=== PATIENT | female | born 1945 | race Caucasian/White ===

== ENCOUNTER 2023-01-31 08:45 | Outpatient (RCR) | payer OTHER, MEDICARE, SELFPAY ==
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
--- NOTE | 2022-12-16 16:20 | PTOPPROG ---
Assessment and note entered by Theresa Caba, PT Assessment Status Progress Onset 10/23/22 Subjective Information Pt reports feeling 60% improved overall. States everything is getting more normal . 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 Feels turning left is improved but still catches sometimes, has to reset herself and then is able to turn further. Assessment PT Clinical Summary Pt reports feeling 60% improved overall since starting therapy. Cont to show deficits in ROM, significant postural abnormalities, muscle tonicity issues, and postural patterning deficits. Pt does report improvements in pain and function with less pain as well during reevaluation. Cervical traction was initiated today with pt stating she felt relaxed during activity. Pt has yet to return to her prior painfree level of function thus therapy is necessary to continue at this time. Plan of Care Interventions Electrical Stimulation,Hot Pack/Cold Pack,Manual Therapy,Neuro Re-education,Patient/Caregiver Educati,Therapeutic Activities,Therapeutic Exercise,Self-Care/Home Management PT Services Indicated Yes Treatment Frequency and Cont POC 2x weekly x 4 weeks Duration These treatments will address the objective and functional deficits as defined above. The patient will be advanced safely and appropriately in order for the patient to progress towards his/her prior level of function. Additional exercises will be introduced and as well as a comprehensive home exercise program upon discharge, if needed, ?to ensure carryover of functional gains achieved in the clinic. This treatment plan has been reviewed and agreement upon by the patient.
--- NOTE | 2023-01-06 15:59 | PTOPPROG ---
Assessment and note entered by Theresa Caba, PT Evaluation Information Assessment Status Progress Report Onset 10/23/22 Subjective Information Pt reports feeling improved overall. States neck catches less often with looking left . Notes her feeling of head being heavy and getting out of bed is also improved. Assessment PT Clinical Summary Pt is making overall progress in her ROM and discomfort. Cont to have difficulty with her posture causing increased muscle tension and tone as well as discomfort. Cont to demo significant kyphosis and forward head which she has been trying to improve. Pt will benefit from cont therapy at a reduced frequency to assess response to normal activity with less intervention in order to return to prior level of function. Plan of Care Interventions Electrical Stimulation,Hot Pack/Cold Pack,Manual Therapy,Mechanical Traction,Neuro Re-education, Therapeutic Activities,Therapeutic Exercise, Ultrasound PT Services Indicated Yes Treatment Frequency and 1x weekly x 4 weeks Duration These treatments will address the objective and functional deficits as defined above. The patient will be advanced safely and appropriately in order for the patient to progress towards his/her prior level of function. Additional exercises will be introduced and as well as a comprehensive home exercise program upon discharge, if needed, ?to ensure carryover of functional gains achieved in the clinic. This treatment plan has been reviewed and agreement upon by the patient.
--- NOTE | 2023-01-31 13:14 | PTOPDC ---
Assessment and note entered by Theresa Caba, PT Assessment Status Discharge Onset 10/23/22 Subjective Information Pt reports feeling in the 80's percent improvement. Had a little flare up on the left side last week after her home exercises. Pt reports this has resolved but thinks is as good as it's going to be . Cont to be unable to lift two of her 2 gallon watering cans (one in each hand) and can do this, but is harder that it used to be. Reported Pain Level Pain Score 1: Self Report Assessment PT Clinical Summary Pt reports feeling her improvement overall in the 80's percent. States she feels she has met her maximal benefit. Her pain ranges from 1-4/10 with less catching and tension. She is able to perform high level activities such as gardening without increased pain but notes it is more challenging that it used to be, Pt cont to demo significant kyphosis and forward head that was possibly her prior level postures. Pt is happy with her progress and has met max benefit for therapy at this time. PT has been educated in seeking treatment in the future if necessary, as well as her home program has been updated, thus pt is being discharged for max benefit being met.
== END 2023-01-31 14:45 | disposition home or self-care (01) ==
LOC: ANHHIPT 08:45
PROVIDERS: PCP Physician Assistant Medical; Visit Provider Physician Assistant Medical
DX: M54.6 Pain in thoracic spine (principal); M54.2 Cervicalgia; V49.50XD Passenger injured in collision with unspecified motor vehicles in traffic accident, subsequent encounter
CPT/HCPCS: 97012; 97014; 97110; 97112; 97140; 97161; G0283

== ENCOUNTER 2024-12-06 02:20 | Day surgery (SDC) | payer MEDICARE, SELFPAY ==
[2024-11-05 11:26] VITALS: BMI 19.8
--- OUTSIDE RECORDS SUMMARY | 2024-11-14 00:33 | XMS_ITS | Data Portability ---
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 Negative cardiac history negative cardiac review of systems physically active with no exertional issues no previous history of heart murmur EKG sinus bradycardia 48 per minute with nonspecific ST abnormality in septal T in version - abnormal heart sounds on cardiac exam, prominent S2, no swelling, mildly abnormal EKG with nonspecific ST-T will start with an echocardiogram, - Sinus bradycardia, on nebivolol Plan, echocardiogram further recommendations to follow [email or web address] [id number] Not available 09/22/2023 16:57:32 10/07/2023 10/07/2023 78-year-old female, noted to have an abnormal cardiac exam by PCP up in [place], an echocardiogram was recommended. Negative cardiac history negative cardiac review of systems physically active with no exertional issues no previous history of heart murmur EKG sinus bradycardia 48 per minute with nonspecific ST abnormality in septal T in version - abnormal heart sounds on cardiac exam, prominent S2, no swelling, mildly abnormal EKG with nonspecific ST-T pulmonary hypertension identified on echocardiogram, RVSP 46. only mild TR. Left heart looks normal. Will start with a PFT and V/Q lung scan reviewed with patient in detail - Sinus bradycardia, on nebivolol Plan, PFT V/Q , ventilation-perfus ion lung scan further recommendations to follow [email or web address] Not available 10/07/2023 14:32:26 Plan of Treatment Reminders Order Date Submit Date Provider Last Modified By Organization Details Last Modified Time Details Appointments None recorded. Lab None recorded. Referral None recorded. Procedures None recorded. Surgeries None recorded. Imaging NM, lung scan, ventilation /perfusion 2023 024 [facility] (Imaging), [address], [place], [address], 16:22:21 XR, chest, 2 view 2023 [facility] (Lab/Imaging) , [address], [place], [address], 14:15:07 electrocard iogram 2023 [email or web address] In-House Test, For Internal Use Only, Do Not Delete/merge, [id number] 16:50:19 US, echocardiog suki, transthorac ic, complete, w/ color flow - CPT [address] [facility], [address], [place], [address], 4 13:15:09 Medication Orders None recorded. Patient TargetsNo targets recorded. Patient Instructions Encounter Date Encounter Id Patient Instructions Last Modified By Organization Details Last Modified Time 10/07/2023 [id number] complete PFT* - CPT 29900, [address], [id number] [email or web address] Not available 10/19/2023 15:11:30 Reason for Referral None Reported. Results Created Date Observation Date Name Description Value Unit Range Abnormal Flag Note LastModifiedBy Organization Detail LastModifiedTime 09/22/19 24 09/22/2023 anil reinoso am No observ ation record ed. [email or web address] In-House Test For Internal Use Only, Do Not Delete/merge, [id number] 09/22/2023 16:50:18 09/22/19 anil rocar zandragr am No observ ation record ed. [email or web address] Not Available 03/2024 12:50:13 09/27/19 24 09/19/2017 elect keegan diogr am No observ ation record ed. [email or web address] Not Available 11:49:57 09/27/19 24 09/19/2017 elect rocar diogr am No observ ation record ed. [email or web address] Not Available 2023 16:41:32 09/28/19 24 09/29/2017 elect jenniferar diogr am No observ ation record ed. [email or web address] Not Available 2023 11:47:03 09/28/19 24 10/30/2022 US, duple x, carot id arter y No observ ation record ed. [email or web address] Not Available 2023 11:47:11 09/29/19 24 09/29/2023 US, echoc ardio gram, trans thora cic, compl ete, w/ color flow No observ ation record ed. ideaas [facility] [address], [place], [address], 11/02/2023 16:42:59 10/19/19 24 10/19/2023 XR, chest , 2 view No observ ation record ed. [email or web address] [facility] (Imaging) [address], [place], [address], 10/19/2023 20:42:41 10/19/19 24 10/19/2023 compl ete PFT* No observ ation record ed. [email or web address] Not Available 02/2024 08:23:07 10/19/19 24 10/19/2023 NM, lung scan, venti latio n/per fusio n No observ ation record ed. [email or web address] [facility] (Imaging) [address], [place], [address], 10/20/2023 08:20:30 Result Notes None recorded. Procedures Surgical History None recorded. Imaging Results Imaging Date Name Status LastModified by Organization Details LastModified Time 09/22/2023 electrocardiogram completed [email or web address] [id number] In-Hous e Test For Internal Use Only, Do Not Delete/merge, [id number] 09/22/2023 16:50:18 09/22/2023 electrocardiogram completed Infor mation not available 09/22/2023 12:50:13 09/29/2017 electrocardiogram completed Informa tion not available 09/29/2023 11:47:03 10/30/2022 US, duplex, carotid artery [email or web address] not available 09/29/2023 11:47:11 09/29/2023 US, echocardiogram, transthoracic, complete, w/ color flow completed [facility] [address], [place], [address], 11/02/2023 16:42:59 09/19/2017 electrocardiogram completed Infor mation not available 10/03/2023 11:49:57 10/19/2023 XR, chest, 2 view completed [address] [facility] (Imaging) [address], [place], [address], 10/19/2023 20:42:41 10/19/2023 complete PFT* completed [email or web address] Informati on not available 10/20/2023 08:23:07 10/19/2023 NM, lung scan, ventilation/perfusio n completed [address] (Imaging) [address], [place], [address], 10/20/2023 08:20:30 09/19/2017 electrocardiogram completed Informa tion not available 11/02/2023 16:41:32 Procedure Notes None recorded. Medical Equipment None Reported. Allergies No known drug allergies Medications Name Sig Start Date Stop Date Status Note LastModified by Organization Details LastModified Time prednisone 10 mg tablet TAKE 3 TABLET BY MOUTH ONCE DAILY FOR 3 DAYS, THEN 2 TABLET ONCE DAILY FOR 3 DAYS, THEN 1 TABLET ONCE DAILY FOR 3 DAYS 09/22 completed Not Available Not Available Not Available levothyroxi ne 50 mcg tablet TAKE 1 TABLET BY MOUTH ONCE DAILY active Not Available Not Available No t Available mupirocin 2 % topical ointment APPLY OINTMENT TOPICALLY TO NOSE TWICE DAILY 09/22 completed Not Available Not Available Not Available estradiol 0.5 mg tablet TAKE 1/2 (ONE-HALF ) TABLET BY MOUTH ONCE DAILY active Not Available Not Available No t Available clorazepate dipotassium 7.5 mg tablet TAKE 1 TABLET BY MOUTH TWICE A DAY NEEDED FOR ANXIETY active Not Available Not Available No t Available nebivolol 10 mg tablet Take 1 tablet every day by oral route. active Not Available Not Available No t Available sodium,pota ssium,mag sulfates 17.5 gram-3.13 gram-1.6 gram oral soln MIX AND DRINK DIRECTED 09/22 completed Not Available Not Available Not Available Paxlovid 150 mg-100 mg tablets in a dose pack (Renal Dose) TAKE 2 TABLETS BY MOUTH TWICE A DAY FOR 5 DAYS FOLLOWING PACKAGE INSTRUCTI ONS 09/22 completed Not Available Not Available Not Available Vitals Date Recorded Body height Body mass index (BMI) Body weight Heart rate Oxygen saturation Oxygen saturation in Arterial blood by Pulse oximetry Systolic blood pressure Diastolic blood pressure Provider Name and Address Organization Details Last Updated DateTime 4 154.94 cm 20.2 kg/m2 04757.3 8 g 50 /min 99 % 99 % 128 mm[Hg] 86 mm[Hg] [facility] - [facility] 4 12:43:19 Date Recorded Body height Body mass index (BMI) Body weight Heart rate Oxygen saturation Oxygen saturation in Arterial blood by Pulse oximetry Systolic blood pressure Diastolic blood pressure Provider Name and Address Organization Details Last Updated DateTime 4 154.94 cm 20.8 kg/m2 49178.1 6 g 61 /min 97 % 97 % 136 mm[Hg] 82 mm[Hg] [facility] - [facility] 4 13:53:39 Social History Question Answer Notes LastModified by Organizat ion Details LastModified Time Tobacco Smoking Status Former Smoker [place], [place] - [facility] 09/22/2023 12:22:02 What Is Your Level Of Alcohol Consumption? Occasional [email or web address] Information not available 09/22/2023 What Is Your Level Of Caffeine Consumption? Moderate [email or web address] Information not available 09/22/2023 What Type Of Diet Are You Following? REGULAR [email or web address] Information not available 09/22/2023 When Did You Quit Smoking? 16+yearsjasmina mcdaniel [email or web address] Information not available 09/22/2023 At What Age Did You Start Smoking Tobacco? 16 [email or web address] Information not available 09/22/2023 Do You Or Have You Ever Used Any Other Forms Of Tobacco Or Nicotine? No [email or web address] Information not available 09/22/2023 Sex: Unknown Functional Status None recorded. Mental Status None recorded. Family History Relationship Description Onset Age of this Age Resolved Age Notes LastModified by Organization Details LastModified Time Mother Cerebrovascu lar accident [email or web address] Not available 03/2024 12:22:01 Mother Hypertensive disorder [email or web address] Not available 2023 12:22:01 Maternal Grandfather Cerebrovascu lar accident [email or web address] Not available 03/2024 12:22:01 Notes:Father, PPM Medical History Condition Response Anxiety Disorder Y Hypertension Y Gynecological HistoryNo gynecological history recorded. Obstetrics History GPAL:G 0 P 0 0 0 0 Past Encounters Encounter ID Performer Location Encounter Start Date Encounter Closed Date Diagnosis/Indication Diagnosis SNOMED-CT Code Diagnosis ICD10 Code Diagnosis Note [id number] JEANETTE KELLER MD [facility] [address] [place] [address] 09/22/2023 12:04:12 09/22/2023 13:55:58 Essential hypertension 79240381 I10 Electrocar diogram abnormal 879049080 R94.[address]-T abnormalit y. [id number] JEANETTE KELLER MD [facility] [address] [place] [address] 10/07/2023 13:46:15 10/07/2023 14:19:44 Essential hypertension 36139567 I10 Electrocar diogram abnormal 138175932 R94.[address]-T abnormalit y. Pulmonary hypertension 32966955 I27.0 Health Concerns Section Related Observation LastModified by Organization Detai ls LastModified Time None Recorded Concern Status LastModified by Organization Details LastModified Time None Recorded Advance Directives Directive None Recorded Payers Encounter Date Sequence Insurance Name Policy Number Policy Hardy Covered Member ID Hardy Member ID Guarantor Name 09/22/2023 1 [employer] (MEDICARE REPLACEMENT PPO) [id number] L Dilia Lopezy [id number] Dilia Hinton 10/07/2023 1 [employer] (MEDICARE REPLACEMENT PPO) [id number] L Dilia Lopezy [id number] Dilia Frey Notes Date Note Type Note Provider Name and Address Organization Details Recorded Time 4 text/html 78-year-old female, noted to have an abnormal cardiac exam by PCP up in [place], an echocardiogram was recommended.Negative cardiac historynegative cardiac review of systemsphysically active with no exertional issuesno previous history of heart murmur EKG sinus bradycardia 48 per minute with nonspecific ST abnormality in septal T in version negative diabetespositive hypertensionnegative cholesterolnegative cigarettenegative family history JEANETTE KELLER MD [address], [place], [address], [facility] - [facility] 09/22/2023 16:58:45 4 text/html 78-year-old female, noted to have an abnormal cardiac exam by PCP up in [place], an echocardiogram was recommended.Negative cardiac historynegative cardiac review of systemsphysically active with no exertional issuesno previous history of heart murmur EKG sinus bradycardia 48 per minute with nonspecific ST abnormality in septal T in version negative diabetespositive hypertensionnegative cholesterolnegative cigarettenegative family history 10/07/23Status post echocardiogram,left heart looks normalRV normalRVSP elevated at 36 mmHgsmoked from age 17-40states he has had a negative workup in the past for lupusno history of thromboembolic disease, no previous diagnosis of COPD or emphysemaHysterectomy back in 2003cholesterol 171CMP normalTFT normal, treatedreturns to [place] in late [place] JEANETTE KELLER MD [address], [place], [address], [facility] - [facility] 10/07/2023 14:32:51 OBGyn Episode No OBEpisode recorded.
--- OUTSIDE RECORDS SUMMARY | 2024-11-14 00:33 | XMS_ITS | Clinical Summary ---
Author Organization [facility] Address [address] [place] [address] Care Team Providers Care Physician Primary Care Sports Medicine Name Role Phone Mihaela Villagran Primary Care Provider [phone] Allergies Active Allergy Reactions Criticality Noted Date Comments Amlodipine Rash Medium 12/06/2023 Amoxicillin-Pot Clavulanate Diarrhea Low 12/06/19 24 Ciprofloxacin Unknown 12/06/2023 Doxycycline Unknown 12/06/2023 Hydrochlorothiazide Unknown 12/06/2023 Ibandronate Muscle pain Medium 12/06/2023 Montelukast Rash Medium 12/06/2023 Nitrofurantoin Monohyd/M-Cryst Unknown 12/05 Medications calcium carbonate-vitam in D3 600mg (1,500mg) -1,000 unit capsule Take by mouth Ca 600 mg & Vit d 2000 iu every other day Active levothyroxine (SYNTHROID) 50 mcg tablet Take 1 tablet (50 mcg total) by mouth bench manager before breakfast Active estradioL (ESTRACE) 0.5 mg tablet Take 1 tablet (0.5 mg total) by mouth daily Active nebivoloL (BYSTOLIC) 5 mg tablet Take 1 tablet (5 mg total) by mouth daily Active clorazepate (TRANXENE) 7.5 mg tablet Take 1 tablet (7.5 mg total) by mouth 2 (two) times a day As needed 3 Active Active Problems Problem Noted Date Diagnosed Date Family history of colon cancer 03/24/2022 Overview (03/24/2022): Added automatically from request for surgery [id number] High risk for colon cancer 10/14/2021 Overview (10/14/2021): Added automatically from request for surgery [id number] Plantar fasciitis, bilateral 01/14/2020 Malignant neoplasm screen 11/21/2018 Overview (11/21/2018): Added automatically from request for surgery [id number] Encounter for screening colonoscopy 05/31/2018 Overview (05/31/2018): Added automatically from request for surgery [id number] Bleeding internal hemorrhoids 02/08/2014 Skin neoplasm 04/27/2013 Eczema 04/27/2013 Venous stasis dermatitis 04/27/2013 Inflamed seborrheic keratosis 04/27/2013 Osteopenia 12/12/2010 Overview (11/12/2019): HRT, ca 500/d, D 2000 IU twice weekly Hx: PO bisphosphonates with pain Surgical History Surgery Date Site/Laterality Comments TOTAL ABDOMINAL HYSTERECTOMY W/ BILATERAL SALPINGOOPHORECTOMY age 58 AUGMENTATION MAMMOPLASTY Medical History Medical History Date Comments History of colon polyps Hypothyroidism HTN (hypertension) Osteoporosis Arthritis Family History Medical History Relation Name Comments Cancer Brother Family history of malignant neoplasm - (Added by TW Conv) Osteoporosis Other aunt Relation Name Status Comments Brother Other aunt Alive Social History Tobacco Use Types Packs/Day Years Used Date Smoking Tobacco: Former Cigarettes Q uit: 1985 Smokeless Tobacco: Former Alcohol Use Standard Drinks/Week Comments Yes 0 (1 standard drink = 0.6 oz pur e alcohol) AUDIT-C Answer Date Recorded Q1: How often do you have a drink containing alcohol? Never 11/25/2022 Q2: How many drinks containi ng alcohol do you have on a typical day when you are drinking? Patient does not drink Q3: How often do you have si x or more drinks on one occasion? Never 11/25/2022 Personal Safety Answer Date Recorded Have you ever been in or are you currently in a harmful physical or emotional relationship or is someone making you feel afraid or unsafe? 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 Gender Identity Female 06/28/2018 10:33 AM SALESPERSON HANDBAGS Sexual Orientation Not on file Obstetrics History Last Filed Vital Signs Vital Sign Reading Time Taken Comments Blood Pressure 158/85 11/25/2022 10:31 AM CDT Pulse 60 11/25/2022 10:36 AM CDT Temperature 36.2 C (97.2 F) 11/25/2022 9:30 AM CDT Respiratory Rate 12 11/25/2022 10:36 AM CDT Oxygen Saturation 98% 11/25/2022 10:36 AM CDT Inhaled Oxygen Concentration - - Weight 49.9 kg (110 lb) 02/21/2024 1:21 PM CDT Height 153.7 cm (5' 0.5 ) 02/21/2024 1:21 PM CDT Body Mass Index 21.13 02/21/2024 1:21 PM CDT Plan of Treatment Health Maintenance Due Date Last Done Comments Depression Screening 1945 Fall Risk Assessment 1945 Hepatitis C Screening 1945 DTaP/Tdap/Td Vaccine (1 - Tdap) 1956 Hepatitis B Screening 1963 Pneumococcal vaccine 65+ (1 of 1 - PCV) 1995 Well Visit 65+ 2010 Influenza Vaccine (Season Ended) 2025 06/04/20 19 Osteoporosis Screening-Bone Density Scan 02/20/2026 02/21/2024, 09/21/2022, 09/21/2022, Additional history exists Zoster Vaccine Completed 05/12/2018, 12/22/2017 Colon Cancer Screening-CT Colonography Discontinued 11/25/2022, 06/15/2019, 04/16/2016, Additional history exists Colon Cancer Screening-Colonoscopy Discontinued 11/25/2022, 06/15/2019, 04/16/2016, Additional history exists Colon Cancer Screening-DNA Stool Discontinued 11/25/2022, 06/15/2019, 04/16/2016, Additional history exists Colon Cancer Screening-FIT Discontinued 11/25, 06/15/2019, 04/16/2016, Additional history exists Colon Cancer Screening-FOBT Discontinued 11/13, 06/15/2019, 04/16/2016, Additional history exists Colon Cancer Screening-Sigmoidoscopy Discontinued 11/25/2022, 06/15/2019, 04/16/2016, Additional history exists Colorectal Cancer Screening Discontinued Procedures Procedure Name Priority Date/Time Associated Diagnosis Comments DEXA TBS AXIAL SKELETON BONE DENSITY 1 OR MORE SITES Schedule Routine, Read Routine (OP Routine) 02/21/2024 1:15 PM CDT Osteopenia of left hip COLONOSCOPY 11/25/2022 9:31 AM CDT from Last 3 Months or Most Recently Relevant to Health Maintenance Results * Dexa TBS Axial Skeleton Bone Density 1 or more sites (02/21/2024 1:15 PM CDT) Anatomical Region Laterality Modality Wrist, Body N/A Radiographic Regina ging Narrative 02/21/2024 3:45 PM CDT Patient Name: Dilia Hinton Date of : 1945 Date of scan: 02/21/2024 Bone mineral density was performed on a [employer] Discovery Densitometer. Based on machine cross-calibration and precision studies the least significant changes of this densitometer is 0.024 g/cm2 at the spine, 0.020 g/cm2 at the total proximal femur, and 0.014g/cm2 at the forearm. HISTORY: This is a 78 y.o. postmenopausal female with a history of low bone mass and thyroid disease. She reports that she quit smoking about 38 years ago. She has quit using smokeless tobacco. Currently on treatment with calcium, vitamin D, hormone replacement therapy, and thyroid hormone, previously treated with risedronate (Actonel), risedronate (Atelvia), and ibandronate (Boniva), and current complaint of leg pain. INDICATIONS: Menopause status, treatment monitoring, and history of low bone mass. FINDINGS: BONE MINERAL DENSITY OF THE LUMBAR SPINE Bone Mineral Density (BMD) of the lumbar spine was measured from L1-L4 and the average density was calculated to be 1.071 gm/cm2. This corresponds to a T-score (standard deviations from the mean of young adults) of 0.2. When compared to the previous study of 09/21/2022 there has been no significant changes in bone density. BONE MINERAL DENSITY OF THE PROXIMAL FEMUR Bone Mineral Density (BMD) of the left hip total was found to be 0.795 gm/cm2. This corresponds to a T-score standard deviations from the mean of young adults of -1.2. Femoral neck is 0.676 gm/cm2 with a T-score (standard deviations from the mean of young adults) of -1.6. When compared to the previous study of 09/21/2022 there has been no significant changes in bone density. SUMMARY: Bone mineral density shows evidence of low bone mass at the proximal femur and moderately increased fracture risk (Osteopenia). There has been no significant changes in bone density since previous measurement. The lumbar spine Trabecular Bone Score is 1.361 which suggests normal bone microarchitecture, compared to the general population. Final decisions regarding diagnostic or therapeutic recommendations should include BMD, TBS, additional clinical risk factors as well the clinical context of the patient. Please see attached TBS results for further details. ADDITIONAL COMMENTS: Postmenopausal Women and Men Over 50: Diagnostic criteria: Osteoporosis: BMD at or below -2.5 T-score; Osteopenia (low bone mass): BMD between -1.0 and -2.5 T-score. If the patient has a history of a fragility fracture, a fracture that occurred with trauma equivalent to a fall from a standing position or less, then the diagnosis is osteoporosis regardless of bone density. The history and data sections of the bone mineral density scan were prepared by Sharla Tello(Adrián) [employer] who is accredited by the International Society of Clinical Densitometry. The overall patient assessment and scan interpretation were performed by Trang Roth MD who is certified by the International Society of Clinical Densitometry. [id number] us Trang Roth MD IMG DXA PROCEDURES Final Re sult * COLONOSCOPY (11/25/2022 9:31 AM CDT) Anatomical Region Laterality Modality Other Narrative Procedure Note Maxime Dobbins MD - 11/25/2022 9:31 AM CDT [facility] Patient Name: Dilia Hinton Procedure Date: 11/25/2022 9:31 AM Date of : 1945 Admit Type: Outpatient Age: 77 Gender: Female Attending MD: Maxime Dobbins M.D. Room: [facility] ENDOSCOPY ROOM 02 Note Status: Finalized Procedure: Colonoscopy Indications: High risk colon cancer surveillance: Personalhistory of colonic polyps, Last colonoscopy: 2018 Referring MD: Providers: Maxime Dobbins M.D. Medicines: Propofol per Anesthesia Complications: No immediate complications. Estimated blood loss:None. Estimated Blood Loss: Estimated blood loss: none. Procedure: Pre-Anesthesia Assessment: - Immediately prior to administration ofmedications, the patient was re-assessed for adequacy to receive sedatives. - Sedation was administered by an anesthesia professional. General anesthesia was attained. - The heart rate, respiratory rate, oxygen saturations, blood pressure, adequacy of pulmonary ventilation, and response to care were monitored throughout the procedure. - The physical status of the patient wasre-assessed after the procedure. The benefits, risks and alternatives of theprocedure and sedation were discussed and informed consentwas obtained. All questions were answered. Please referto the signed informed consent document in the medical record. The scope was passed under direct vision.The [id number] was introduced through the anusand advanced to the the cecum, identified byappendiceal orifice and ileocecal valve. The colonoscopy was performed with ease. The patient tolerated the procedure well. The quality of the bowelpreparation was excellent. The quality of the bowel preparation was evaluated using the BBPS ([place] BowelPreparation Scale) with scores of: Right Colon = 3, Transverse Colon = 3 and Left Colon = 3 (entire mucosa seenwell with no residual staining, small fragments of stoolor opaque liquid). The total BBPS score equals 9. The bowel preparation used was SUPREP via split dose instruction. Findings: The entire examined colon appeared normal. Impression: - The entire examined colon is normal. - No specimens collected. Recommendation: - Repeat colonoscopy in 3 years for surveillance. Electronically signed by Dr.Matthew Shilpi M.D. Maxime Dobbins M.D. 11/25/2022 10:11:49 AM . Number of Addenda: 0 Note Initiated On: 11/25/2022 9:31 AM Recognized by the [place] [employer]intestinal [employer] for promoting quality in endoscopy Maxime Dobbins MD ENDOSCOPY PROCEDURES Final R esult from Last 3 Months or Most Recently Relevant to Health Maintenance Insurance [facility] TNA MEDICARE AETNA MEDICARE [facility] Advance Directives For more information, please contact: [phone] * Full Code (Latest Code Status on File) Date Activated Date Inactivated Comments 11/25/2022 8:59 AM 11/25/2022 2:55 PM * Full Code Date Activated Date Inactivated Comments 06/15/2019 8:24 AM 06/15/2019 1:38 PM Care Teams Physician Primary Care Sports Medicine Relationship Specialty Start Date End Date Mihaela Villagran PA [address] [place] [address] PCP - General Family Practice 09/21/22
--- OUTSIDE RECORDS SUMMARY | 2024-11-14 00:33 | XMS_ITS | Referral Summary ---
Author Organization [facility] Address [address] [place] [address] Care Team Providers Care Narcotics Investigator Name Role Phone Mihaela Villagran Primary Care Provider [phone] Allergies Active Allergy Reactions Criticality Noted Date [...] 1 tablet (50 mcg total) by mouth nonprofit financial controller before breakfast Active estradioL (ESTRACE) 0.5 mg [...] (03/24/2022): Added automatically from request for surgery [id number] High risk for colon cancer 10/14/2021 Overview (10/14/2021): Added automatically from request for surgery [id number] Plantar fasciitis, bilateral 01/14/2020 Malignant neoplasm screen 11/21/2018 Overview (11/21/2018): Added automatically from request for surgery [id number] Encounter for screening colonoscopy 05/31/2018 Overview (05/31/2018): Added automatically from request for surgery [id number] Bleeding internal hemorrhoids 02/08/2014 Skin neoplasm 04/27/2013 Eczema 04/27/2013 Venous stasis dermatitis 04/27/2013 Inflamed seborrheic keratosis 04/27/2013 Osteopenia 12/12/2010 Overview (11/12/2019): HRT, ca 500/d, D 2000 IU twice weekly Hx: PO bisphosphonates with pain Social History Tobacco Use Types Packs/Day Years [...] on file Legal Sex Female 8:22 PM 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 Based on machine cross-calibration and [...] mineral density scan were prepared by Sharla Ayon) DAVID who is accredited by the International Society of Clinical Densitometry. The overall patient assessment and scan interpretation were performed by Trang Roth MD who is certified by the International Society of Clinical Densitometry. [id number] us Trang Roth MD IMG DXA PROCEDURES Final Re sult * COLONOSCOPY (11/25/2022 9:31 AM CDT) Anatomical Region Laterality Modality Other Narrative Procedure Note Maxime Dobbins MD - 11/25/2022 9:31 AM CDT [facility] Patient Name: Dilia Hinton Procedure Date: 11/25/2022 9:31 AM Date of : 1945 Admit Type: Outpatient Age: 77 Gender: Female Attending MD: Maxime Dobbins M.D. Room: [facility] ENDOSCOPY ROOM 02 Note Status: Finalized Procedure: [...] The scope was passed under direct vision.The [id number] was introduced through the anusand advanced to the the cecum, identified byappendiceal orifice and ileocecal valve. The colonoscopy was performed with ease. The patient tolerated the procedure well. The quality of the bowelpreparation was excellent. The quality of the bowel preparation was evaluated using the BBPS ([place] BowelPreparation Scale) with scores of: Right Colon [...] On: 11/25/2022 9:31 AM Recognized by the [place] [employer] Gastrointestinal Endoscopy for promoting quality in endoscopy Maxime Dobbins MD ENDOSCOPY PROCEDURES Final R esult from Last 3 Months or Most Recently Relevant to Health Maintenance [facility] A[facility] MEDIC[facility] AETNA MEDICARE [facility] Advance Directives For more information, please contact: [phone] * Full Code (Latest Code Status on File) Date Activated Date Inactivated Comments 11/25/2022 8:59 AM 11/25/2022 2:55 PM * Full Code Date Activated Date Inactivated Comments 06/15/2019 8:24 AM 06/15/2019 1:38 PM Care Teams Narcotics Investigator Relationship Specialty Start Date End Date Mihaela Villagran PA [address] [place] [id number] PCP - General Family Practice 09/21/22
--- OUTSIDE RECORDS SUMMARY | 2024-11-14 00:34 | XMS_ITS | Clinical Summary ---
Author Organization [facility] Address [address] [place] [address] Phone Care Team Providers Care Sales Planning Coordinator Name Role Phone Unavailable Primary Care Provider Unavailabl e Allergies Active Allergy Reactions Criticality Noted Date Comments Amlodipine Rash Low 12/06/2023 Amoxicillin-Pot Clavulanate Diarrhea Low 12/06/19 24 Ciprofloxacin Unknown 12/06/2023 Doxycycline Unknown 12/06/2023 Hydrochlorothiazide Unknown 12/06/2023 Ibandronate Muscle Pain Low 12/06/2023 Montelukast Rash Low 12/06/2023 Nitrofurantoin Monohyd/M-Cryst Unknown 12/05 Medications estradioL (ESTRACE) 0.5 mg tablet Take 0.25 mg by mouth daily. Active levothyroxine 50 mcg tablet Take 50 mcg by mouth daily. Active nebivoloL (BYSTOLIC) 20 mg Tablet Take 20 mg by mouth daily. Active Active Problems Problem Noted Date Diagnosed Date Pulmonary hypertension 12/06/2023 Encounters Date Type Department Care Team Description 10/03/2024 External Device Data [facility] ABSTRACTION Provider, Abstract 09/12/2024 External Device Data [facility] ABSTRACTION Provider, Abstract 09/06/2024 External Device Data [facility] ABSTRACTION Provider, Abstract from Last 3 Months Family History Medical History Relation Name Comments Pacemaker Father Aleksandr Potthast Hypertension Mother [place] Potthast High and ve ry fluctuating Stroke Mother Meryl Potthast Relation Name Status Comments Father Aleksandr Potthast Mother [place] Potthast Social History Tobacco Use Types Packs/Day Years Used Date Smoking Tobacco: Former Cigarettes 0.5 20 1 983 - 11/10/1983 Tobacco Cessation:Counseling Given: Not Answered Alcohol Use Standard Drinks/Week Comments Yes 12 (1 standard drink = 0.6 oz pu re alcohol) Food Insecurity Answer Date Recorded Social/Environmental Concerns No concerns Transportation Needs Answer Date Record ed Social/Environmental Concerns No concerns Housing Stability Answer Date Recorded Social/Environmental Concerns No concerns Utility Needs Answer Date Recorded Social/Environmental Concerns No concerns Comments Unknown Sex and Gender Information Value Date Recorded Sex Assigned at Not on file Legal Sex Female 2:32 PM CDT Gender Identity Not on file Sexual Orientation Not on file Last Filed Vital Signs Vital Sign Reading Time Taken Comments Blood Pressure 129/80 12/16/2023 3:15 PM CDT Pulse 72 12/16/2023 2:45 PM CDT Temperature 37.2 C (98.9 F) 12/16/2023 12:39 PM CDT Respiratory Rate 13 12/16/2023 3:15 PM CDT Oxygen Saturation 99% 12/16/2023 2:45 PM CDT Inhaled Oxygen Concentration - - Weight 48.5 kg (107 lb) 12/16/2023 12:39 PM CDT Height 154.9 cm (5' 1 ) 12/16/2023 12:39 PM CDT Body Mass Index 20.22 12/16/2023 12:39 PM CDT Plan of Treatment Health Maintenance Due Date Last Done Comments DTAP/TDAP/TD VACCINES (1 - Tdap) 1964 PNEUMOCOCCAL VACCINE 50+ YEA RS (1 of 1 - PCV) 1995 ZOSTER VACCINE (1 of 2) 1995 RSV VACCINE (60+ or ) (1 - 1-dose 75+ series) 2020 INFLUENZA VACCINE (#1) 2024 OSTEOPOROSIS SCREENING Completed , 09/21/2022, 06/01/2021, Additional history exists COLORECTAL SCREENING Discontinued 11/25/2022, 11/25/2022, 06/15/2019 Colorectal Cancer Screening Discontinued FIT-DNA Q 3 years Discontinued FIT/FOBT Q 1 year Discontinued Flex Sig/CT Colonography Q 5 years Discontinued Insurance AETNA PPO MCR
--- OUTSIDE RECORDS SUMMARY | 2024-11-14 00:34 | XMS_ITS | Continuity of Care Document ---
Author Organization [facility]. If a dditional information is needed, contact Health Information Management at [phone] Address [address] [place] [address] Phone Care Team Providers Care Global Director Air And Climate Change Name Role Phone Unavailable Unavailable Unavailable Unavailable Unavailable Unavailable Unavailable Unavailable Unavailable Unavailable Unavailable Unavailable Encounters pre-admission 19-Oct-2023 14:00 Modesto Garcia MD (Attending) [facility] pre-admission 19-Oct-2023 13:00 Modesto Garcia MD (Attending) [facility]
--- OUTSIDE RECORDS SUMMARY | 2024-11-14 00:34 | XMS_ITS | Encounter Summary ---
Author Organization [facility] Address [address] [place] [address] Phone Care Team Providers Care Machinist Class B Name Role Phone Shaun Mccurdy MD Primary Care Provider [phone] Mihaela Villagran Primary Care Provider [phone] Encounter Details Date Type Department Care Team (Late st Contact Info) Description 12/29/[address] [facility] [address] [place] [address] Ilana Harrington Osteopenia, unspecified location (Primary Dx) Social History Tobacco Use Types Packs/Day Years Used Date Smoking Tobacco: Former Comments Unknown Sex and Gender Information Value Date Recorded Sex Assigned at Not on file Legal Sex Female 8:22 PM HOSPITAL CLERK Gender Identity Female 06/28/2018 10:33 AM HOSPITAL CLERK Sexual Orientation Not on file documented as of this encounter Plan of Treatment Not on file documented as of this encounter Visit Diagnoses Diagnosis Osteopenia, unspecified location- Primary documented in this encounter Care Teams Machinist Class B Relationship Specialty Start Date End Date Shaun Mccurdy MD [address] [place] [id number] PCP - General Internal Medicine 12/28/17 09/20/22 Mihaela Villagran PA [address] [place] [id number] PCP - General Family Practice 09/21/22 documented as of this encounter
--- OUTSIDE RECORDS SUMMARY | 2024-11-14 00:34 | XMS_ITS | Clinical Summary ---
Author Organization [facility] Address [address] [place] [address] Care Team Providers Care Integrated Circuit Fabricator Name Role Phone Mhiaela Villagran PA-C Primary Care Provider [phone] Active Problems Problem Noted Date Diagnosed Date Plantar fasciitis, bilateral 01/14/2020 Social History Tobacco Use Types Packs/Day Years Used Date Smoking Tobacco: Never Assessed Comments Unknown Sex and Gender Information Value Date Recorded Sex Assigned at Not on file Legal Sex Female 9:09 PM CDT Gender Identity Not on file Sexual Orientation Not on file Plan of Treatment Health Maintenance Due Date Last Done Comments Hepatitis C 1963 DTaP, Tdap and Td Vaccines ( 1 - Tdap) 1964 Annual Medicare Wellness Visit 2010 Dexa Scan (General) 2010 Pneumococcal Vaccine: 65+ Years (1 of 1 - PCV) 2010 RSV Immunization or 60+ Years (1 - 1-dose 75+ series) 2020 COVID-19 Vaccine ( - 2023-2 5 season) 2024 Zoster Vaccines Completed 05/12/2018, 12/22/2017 Meningococcal B Vaccine Aged Out No l onger eligible based on patient's age to complete this topic Meningococcal Vaccine Aged Out No vicky te eligible based on patient's age to complete this topic RSV Immunizations Under 20 Months Aged Out No longer eligible b ased on patient's age to complete this topic Insurance AETNA Care Teams Integrated Circuit Fabricator Relationship Specialty Start Date End Date Mihaela Villagran PA-C [address] [place] [address] [address] [place] [address] PCP - General PHYSICIAN CARGO AGENT 04/01/23
--- OUTSIDE RECORDS SUMMARY | 2024-11-14 00:34 | XMS_ITS | Clinical Summary ---
Author Organization [facility] Address [address] [place] [address] Care Team Providers Care Pump Erector Name Role Phone Shaun Mccurdy MD Primary Care Provider [phone] Source Comments [facility] Affiliates and Associated Physician Practices is amultiple site organization consisting of ambulatory clinics and hospital sitesin [place], [place], [place] and [place]. This disclosure is being madepursuant to the Care Everywhere program and may not contain all information available regarding this patient. Last updated 18.[facility] Social History Tobacco Use Types Packs/Day Years Used Date Smoking Tobacco: Never Assessed Sex and Gender Information Value Date Recorded Sex Assigned at Not on file Gender Identity Not on file Sexual Orientation Not on file Last Filed Vital Signs Vital Sign Reading Time Taken Comments Blood Pressure 124/76 02/17/2015 3:16 PM CDT Pulse 76 02/17/2015 3:16 PM CDT Temperature 36.2 C (97.2 F) 02/17/2015 3:16 PM CDT Respiratory Rate - - Oxygen Saturation 99% 02/17/2015 3:16 PM CDT Inhaled Oxygen Concentration - - Weight 52.2 kg (115 lb) 02/17/2015 3:16 PM CDT Height - - Body Mass Index - - Plan of Treatment Health Maintenance Due Date Last Done Comments BONE DENSITY TESTING 1945 HEPATITIS C SCREENING 08/07/1963 DTAP/TDAP/TD VACCINES (1 - Tdap) 1964 PNEUMOCOCCAL VACCINE 50+ (1 of 1 - PCV) 1995 ZOSTER VACCINE (1 of 2) 1995 Respiratory Syncytial Virus (RSV) Vaccine Pt: or over 60 yrs (1 - 1-dose 75+ series) 2020 COVID-19 VACCINE (2023-2 5 season) 2024 DEPRESSION SCREENING 08/15/2024 INFLUENZA VACCINE (Season Ended) 2025 HEPATITIS B VACCINE Aged Out No longe r eligible based on patient's age to complete this topic HIB VACCINE Aged Out No longer eligi ble based on patient's age to complete this topic HPV VACCINE Aged Out No longer eligi ble based on patient's age to complete this topic MENINGOCOCCAL (Group B) VACC INE SHARED DECISION-MAKING Aged Out No longer eligibl e based on patient's age to complete this topic MENINGOCOCCAL GROUPS A/C/Y/W VACCINE Aged Out No longer eligible b ased on patient's age to complete this topic Care Teams Pump Erector Relationship Specialty Start Date End Date Shaun Mccurdy MD [address] [place] [address] [place] [id number] PCP - General 04/14/12
--- NOTE | 2024-11-14 06:30 | SUR.PREOP ---
Patient called this morning and states that she started getting sick last night and will not be coming in today.
[2024-12-04 10:57] VITALS: BMI 19.8
--- OUTSIDE RECORDS SUMMARY | 2024-12-06 02:23 | XMS_ITS | Referral Summary ---
Author Organization [facility] Address [address] [place] [address] Care Team Providers Care Government Contracts Manager Name Role Phone Mihaela Villagran Primary Care Provider [phone] Allergies Active Allergy Reactions Criticality Noted Date [...] 1 tablet (50 mcg total) by mouth siderographist before breakfast Active estradioL (ESTRACE) 0.5 mg [...] (03/24/2022): Added automatically from request for surgery [id number] High risk for colon cancer 10/14/2021 Overview (10/14/2021): Added automatically from request for surgery [id number] Plantar fasciitis, bilateral 01/14/2020 Malignant neoplasm screen 11/21/2018 Overview (11/21/2018): Added automatically from request for surgery [id number] Encounter for screening colonoscopy 05/31/2018 Overview (05/31/2018): Added automatically from request for surgery [id number] Bleeding internal hemorrhoids 02/08/2014 Skin neoplasm 04/27/2013 [...] on file Legal Sex Female 8:22 PM SMOKING PIPES CLEANER Gender Identity Female 06/28/2018 10:33 AM SMOKING PIPES CLEANER Sexual Orientation Not on file Last Filed [...] Bone mineral density was performed on a [employer] Discovery Densitometer. Based on machine cross-calibration and [...] by the International Society of Clinical Densitometry. [id number] us Trang Roth MD IMG DXA PROCEDURES Final Re sult * COLONOSCOPY (11/25/2022 9:31 AM CDT) Anatomical Region Laterality Modality Other Narrative Procedure Note Maxime Dobbins MD - 11/25/2022 9:31 AM CDT [facility] Patient Name: Dilia Hinton Procedure Date: 11/25/2022 9:31 AM Date of : 1945 Admit Type: Outpatient Age: 77 Gender: Female Attending MD: Maxime Dobbins M.D. Room: [facility] ENDOSCOPY ROOM 02 Note Status: [...] The scope was passed under direct vision.The [id number] was introduced through the anusand advanced to the the cecum, identified byappendiceal orifice and ileocecal valve. The colonoscopy was performed with ease. The patient tolerated the procedure well. The quality of the bowelpreparation was excellent. The quality of the bowel preparation was evaluated using the BBPS ([place] BowelPreparation Scale) with scores of: Right Colon [...] On: 11/25/2022 9:31 AM Recognized by the [place] [employer] for Gastrointestinal Endoscopy for promoting quality in endoscopy Maxime Dobbins MD ENDOSCOPY PROCEDURES Final R esult from Last 3 Months or Most Recently Relevant to Health Maintenance [facility]IC[facility] AETNA MEDICARE [facility] Advance Directives For more information, please contact: [phone] * Full Code (Latest Code Status on File) Date Activated Date Inactivated Comments 11/25/2022 8:59 AM 11/25/2022 2:55 PM * Full Code Date Activated Date Inactivated Comments 06/15/2019 8:24 AM 06/15/2019 1:38 PM Care Teams Government Contracts Manager Relationship Specialty Start Date End Date Mihaela Villagran PA [address] [place] [id number] PCP - General Family Practice 09/21/22
--- OUTSIDE RECORDS SUMMARY | 2024-12-06 02:23 | XMS_ITS | Clinical Summary ---
Author Organization [facility] Address [address] [place] [address] Care Team Providers Care Four Slide Machine Setter Name Role Phone Mihaela Villagran PA-C Primary Care Provider [phone] Active Problems Problem Noted Date Diagnosed Date [...] Td Vaccines ( 1 - Tdap) 1964 Pneumococcal Vaccine: 50+ Years (1 of 1 - PCV) 1995 Annual Medicare Wellness Visit 2010 Dexa Scan (General) 2010 RSV Immunization or 60+ Years (1 [...] complete this topic Insurance AETNA Care Teams Four Slide Machine Setter Relationship Specialty Start Date End Date Mihaela Villagran PA-C [address] [place] [address] [address] [place] [address] PCP - General PHYSICIAN COMIC ARTIST 04/01/23
--- OUTSIDE RECORDS SUMMARY | 2024-12-06 02:23 | XMS_ITS | Encounter Summary ---
Author Organization [facility] Address [address] [place] [address] Phone Care Team Providers Care Line Locator Name Role Phone Shaun Mccurdy MD Primary Care Provider [phone] Mihaela Villagran Primary Care Provider [phone] Encounter Details Date Type Department Care Team (Late st Contact Info) Description 12/29/2017 Orders Only [facility] [address] [facility] Medical [address] [place] [address] Ilana Harrington Osteopenia, unspecified location (Primary Dx) Social History Tobacco Use Types Packs/Day Years Used Date Smoking Tobacco: Former Comments Unknown Sex and Gender Information Value Date Recorded Sex Assigned at Not on file Legal Sex Female 8:22 PM COIL WINDER STRAP Gender Identity Female 06/28/2018 10:33 AM COIL WINDER STRAP Sexual Orientation Not on file documented as of this encounter Plan of Treatment Not on file documented as of this encounter Visit Diagnoses Diagnosis Osteopenia, unspecified location- Primary documented in this encounter Care Teams Line Locator Relationship Specialty Start Date End Date Shaun Mccurdy MD [address] [place] [id number] PCP - General Internal Medicine 12/28/17 09/20/22 Mihaela Villagran PA [address] [place] [id number] PCP - General Family Practice 09/21/22 documented as of this encounter
--- OUTSIDE RECORDS SUMMARY | 2024-12-06 02:23 | XMS_ITS | Clinical Summary ---
Author Organization [facility] Address [address] [place] [address] Care Team Providers Care Neurodiagnostic Technologist Name Role Phone Mihaela Villagran Primary Care Provider [phone] Allergies Active Allergy Reactions Criticality Noted Date [...] 1 tablet (50 mcg total) by mouth torque tester before breakfast Active estradioL (ESTRACE) 0.5 mg [...] (03/24/2022): Added automatically from request for surgery [id number] High risk for colon cancer 10/14/2021 Overview (10/14/2021): Added automatically from request for surgery [id number] Plantar fasciitis, bilateral 01/14/2020 Malignant neoplasm screen 11/21/2018 Overview (11/21/2018): Added automatically from request for surgery [id number] Encounter for screening colonoscopy 05/31/2018 Overview (05/31/2018): Added automatically from request for surgery [id number] Bleeding internal hemorrhoids 02/08/2014 Skin neoplasm 04/27/2013 [...] on file Legal Sex Female 8:22 PM DIE DEVELOPER Gender Identity Female 06/28/2018 10:33 AM DIE DEVELOPER Sexual Orientation Not on file Obstetrics History [...] Bone mineral density was performed on a [employer] Discovery Densitometer. Based on machine cross-calibration and [...] by the International Society of Clinical Densitometry. [id number] us Trang Roth MD IMG DXA PROCEDURES Final Re sult * COLONOSCOPY (11/25/2022 9:31 AM CDT) Anatomical Region Laterality Modality Other Narrative Procedure Note Maxime Dobbins MD - 11/25/2022 9:31 AM CDT [facility] Patient Name: Dilia Hinton Procedure Date: 11/25/2022 9:31 AM Date of : 1945 Admit Type: Outpatient Age: 77 Gender: Female Attending MD: Maxime Dobbins M.D. Room: [facility] ENDOSCOPY ROOM 02 Note Status: Finalized [...] The scope was passed under direct vision.The [id number] was introduced through the anusand advanced to the the cecum, identified byappendiceal orifice and ileocecal valve. The colonoscopy was performed with ease. The patient tolerated the procedure well. The quality of the bowelpreparation was excellent. The quality of the bowel preparation was evaluated using the BBPS ([place] BowelPreparation Scale) with scores of: Right Colon [...] On: 11/25/2022 9:31 AM Recognized by the [place] [employer] for Gastrointestinal Endoscopy for promoting quality in endoscopy Maxime Dobbins MD ENDOSCOPY PROCEDURES Final R esult from Last 3 Months or Most Recently Relevant to Health Maintenance Insurance [facility] INCLUDE [facility] BEDS AT THE [facility] MEDICARE Address: [facility] [id number] [place] [id number] TNA MEDICARE AETNA MEDICARE [facility] Advance Directives For more information, please contact: [phone] * Full Code (Latest Code Status on File) Date Activated Date Inactivated Comments 11/25/2022 8:59 AM 11/25/2022 2:55 PM * Full Code Date Activated Date Inactivated Comments 06/15/2019 8:24 AM 06/15/2019 1:38 PM Care Teams Neurodiagnostic Technologist Relationship Specialty Start Date End Date Mihaela Villagran PA [address] [place] [address] PCP - General Family Practice 09/21/22
--- OUTSIDE RECORDS SUMMARY | 2024-12-06 02:23 | XMS_ITS | Clinical Summary ---
Author Organization [facility] Address [facility] [place] [address] Care Team Providers Care Structural Iron Worker Name Role Phone Shaun Mccurdy MD Primary Care Provider [phone] Source Comments [facility],non-[facility] Affiliates and Associated Physician Practices is amultiple site organization consisting of ambulatory clinics and hospital sitesin [place], [place], [place] and [place]. This disclosure is being madepursuant to the Care Everywhere program and may not contain all information available regarding this patient. Last updated 18.[facility] Social History Tobacco Use Types Packs/Day Years Used Date Smoking Tobacco: Never Assessed Comments Unknown Sex and Gender Information Value Date Recorded Sex Assigned at Not on file Legal Sex Female 6:26 AM INVENTORY MANAGER Gender Identity Not on file Sexual Orientation [...] Last Done Comments BONE DENSITY TESTING 1945 DTAP/TDAP/TD VACCINES (1 - Tdap) 1964 PNEUMOCOCCAL VACCINE 50+ (1 of 1 - PCV) 1995 ZOSTER VACCINE (1 of 2) 1995 Respiratory Syncytial Virus (RSV) Vaccine Pt: or over 60 yrs (1 - 1-dose 75+ series) 2020 COVID-19 VACCINE ( - 2023-2 5 season) 2024 DEPRESSION SCREENING 08/15/2024 INFLUENZA [...] age to complete this topic Care Teams Structural Iron Worker Relationship Specialty Start Date End Date Shaun Mccurdy MD [address] [place] [address] [place] [id number] PCP - General 04/14/12
--- OUTSIDE RECORDS SUMMARY | 2024-12-06 02:23 | XMS_ITS | Clinical Summary ---
Author Organization [facility] Address [address] [place] [address] Phone Care Team Providers Care Knuckler Name Role Phone Unavailable Primary Care Provider [...] Comments Pacemaker Father Aleksandr Potthast Hypertension Mother [place] Potthast High and ve ry fluctuating Stroke Mother Meryl Potthast Relation Name Status Comments Father Aleksandr Potthast Mother Meryl Potthast Social History Tobacco Use Types Packs/Day [...] 2020 INFLUENZA VACCINE (#1) 2024 OSTEOPOROSIS SCREENING 09/21/2027 3, 09/21/2022, 06/01/2021, Additional history exists COLORECTAL SCREENING Discontinued 11/25/2022, 11/25/2022, 06/15/2019 Colorectal Cancer Screening Discontinued FIT-DNA Q 3 years Discontinued FIT/FOBT Q 1 year Discontinued Flex Sig/CT Colonography Q 5 years Discontinued Insurance AETNA PPO MCR
[2024-12-06 06:24] VITALS: BP 174/96; PULSE 66; RESP 16; TEMP 36.4; O2SAT 99; BMI 19.3
[2024-12-06] MEDS: LACTATED RINGERS 1,000 ML 150 ML IV CONT (06:39)
--- NOTE | 2024-12-06 07:12 | WPDANESEPPF ---
Anes - Initial Pre Proc Eval Procedure: Operation Date: 12/06/24 07:30 Proposed Procedures p Esophagogastroduodenoscopy - Adonay Blackburn MD Date/Time: 12/06/24 07:12 Surgeon: Adonay Blackburn MD Pre Op Diagnosis: Aphagia,Epigastric pain Patient Data Age: 79 Gender: F Height: 1.55 m Weight: 46.3 kg Last Vital Signs Temp 97.6 F 12/06/24 06:24 Pulse 66 12/06/24 06:24 Resp 16 12/06/24 06:24 BP 174/96 H 12/06/24 06:24 Pulse Ox 99 12/06/24 06:24 O2 Del Method Room Air 12/06/24 06:24 Allergies Allergy/AdvReac Type Severity Reaction Status Date / Time doxycycline Allergy Unknown Unknown Verified 12/06/24 06:23 amlodipine AdvReac Mild Swelling Verified 12/06/24 06:23 amoxicillin (From Augmentin) AdvReac Mild Diarrhea Verified 12/06/24 06:23 ciprofloxacin (From Cipro) AdvReac Mild Unknown Verified 12/06/24 06:23 clavulanic acid (From AdvReac Mild Diarrhea Verified 12/06/24 06:23 Augmentin) hydrochlorothiazide AdvReac Mild Unknown Verified 12/06/24 06:23 ibandronate sodium (From AdvReac Mild Muscle Verified 12/06/24 06:23 Boniva) Spasms montelukast (From Singulair) AdvReac Mild Unknown Verified 12/06/24 06:23 nitrofurantoin (From AdvReac Mild Unknown Verified 12/06/24 06:23 Macrobid) Home Medications ?Medication ?Instructions ?Recorded ?Confirmed ?Type clorazepate dipotassium 7.5 mg 7.5 mg PO BID PRN anxiety #60 tabs 06/05/24 11/28/24 Rx tablet albuterol sulfate 90 mcg/actuation 2 puff inhalation Q4-6H PRN 07/11/24 11/28/24 Rx aerosol inhaler cough/wheezing #8.5 grams estradiol 0.5 mg tablet 0.25 mg (1/2 x 0.5 mg) PO DAILY 11/26/24 12/06/24 Rx #90 tabs famotidine 20 mg tablet 20 mg PO DAILY #90 tabs 04/14/25 04/24/25 Rx levothyroxine 50 mcg tablet 50 mcg PO DAILY #90 tabs 11/26/24 12/06/24 Rx nebivolol 20 mg tablet 20 mg PO DAILY #90 tabs 11/26/24 12/06/24 Rx Patient hx anesthesia problems: none Family hx anesthesia problems: none Results Review: All pre-operative results and documents have been reviewed as part of the pre-operative evaluation. [facility] Past Medical History Medical History Dyspepsia Fever blister On postmenopausal hormone replacement therapy Carotid artery stenosis Anxiety Venous stasis dermatitis Urinary incontinence Hypothyroid Osteopenia HTN (hypertension) Surgical History Surgical History History of eye surgery bilateral conjunctiva correction History of breast augmentation History of pelvic surgery reconstruction 2003- hysterectomy, bilateral oopherectomy Family History Family History Father Dementia Osteoarthritis Mother Hypertension Cerebrovascular accident Sibling Carcinoma of colon Sibling Carcinoma of colon Social History Social History Social History: 05/21/24 patient declined SDOH Smoking packs per day: 1 Smoking cigarettes per day: 20.0 Years smoked: 24 Smoking pack-years: 24.00 Smoking status: Former smoker Tobacco type: cigarettes Second hand tobacco smoke exposure: Yes Alcohol intake: current Drinks per week: 14 Alcohol use details: beer Substance use: never Substance use type: does not use Lack of Transportation: No Lack of Food: Never True Current Housing: I Have Housing Concerned About Future Housing: No Difficulty Paying Gas/Electric Bills: No Difficulty Paying for Meds: No Currently Unemployed: No Education: Trade/Vocational Certificate Difficulty w/ Childcare or Family Care: No Living arrangements: with family Gender identity (if verbalized by the patient): Female Sexual Orientation (if Verbalized by the Patient): Straight or Heterosexual Spiritual care concerns: No Anes - Eval Final PreProcedure Day of Procedure 12/06/24 07:12 Patient weight: normal Heart: regular rate and rhythm Lungs: clear to auscultation Airway: Mallampati scale class II Neurological: alert and oriented Last oral intake: >/= 8 hours ASA classification: III Emergent: no Anesthetic plan: proceed Anesthesia type and monitoring: general GIVS and standard monitoring Results Review: All pre-operative results and documents have been reviewed as part of the pre-operative evaluation. Informed Consent: The patient's anesthetic plan and its attendant risks and benefits were discussed with the patient/family/POA. Questions were solicited and answers provided to the satisfaction of the patient/family/POA.
--- NOTE | 2024-12-06 07:38 | PM.HPGS ---
History of Present Illness History of Present Illness Consent: Risks, benefits, and alternatives have been discussed and questions answered. Patient agrees to proceed with procedure. Chief complaint: Aphagia,Epigastric pain Narrative: Dilia Hinton is a 79 year old female with dysphagia, had EGD but years ago Review of Systems Review of Systems: All systems reviewed & are unremarkable except as noted in HPI and below PMFSH Past Medical History Medical History (Updated 12/06/24 @ 07:40 by Adonay Blackburn MD) Dysphagia Dyspepsia Fever blister On postmenopausal hormone replacement therapy Carotid artery stenosis Anxiety Venous stasis dermatitis Urinary incontinence Hypothyroid Osteopenia HTN (hypertension) Surgical History Surgical History History of eye surgery bilateral conjunctiva correction History of breast augmentation History of pelvic surgery reconstruction 2003- hysterectomy, bilateral oopherectomy Family History Family History Father Dementia Osteoarthritis Mother Hypertension Cerebrovascular accident Sibling Carcinoma of colon Sibling Carcinoma of colon Social History Social History Social History: 05/21/24 patient declined SDOH Smoking packs per day: 1 Smoking cigarettes per day: 20.0 Years smoked: 24 Smoking pack-years: 24.00 Smoking status: Former smoker Tobacco type: cigarettes Second hand tobacco smoke exposure: Yes Alcohol intake: current Drinks per week: 14 Alcohol use details: beer Substance use: never Substance use type: does not use Lack of Transportation: No Lack of Food: Never True Current Housing: I Have Housing Concerned About Future Housing: No Difficulty Paying Gas/Electric Bills: No Difficulty Paying for Meds: No Currently Unemployed: No Education: Trade/Vocational Certificate Difficulty w/ Childcare or Family Care: No Living arrangements: with family Gender identity (if verbalized by the patient): Female Sexual Orientation (if Verbalized by the Patient): Straight or Heterosexual Spiritual care concerns: No Meds Home Medications and Allergies Home Medications ?Medication ?Instructions ?Recorded ?Confirmed ?Type clorazepate dipotassium 7.5 mg 7.5 mg PO BID PRN anxiety #60 tabs 06/05/24 11/28/24 Rx tablet albuterol sulfate 90 mcg/actuation 2 puff inhalation Q4-6H PRN 07/11/24 11/28/24 Rx aerosol inhaler cough/wheezing #8.5 grams estradiol 0.5 mg tablet 0.25 mg (1/2 x 0.5 mg) PO DAILY 11/26/24 12/06/24 Rx #90 tabs famotidine 20 mg tablet 20 mg PO DAILY #90 tabs 11/26/24 12/06/24 Rx levothyroxine 50 mcg tablet 50 mcg PO DAILY #90 tabs 11/26/24 12/06/24 Rx nebivolol 20 mg tablet 20 mg PO DAILY #90 tabs 11/26/24 12/06/24 Rx Allergies Allergy/AdvReac Type Severity Reaction Status Date / Time doxycycline Allergy Unknown Unknown Verified 12/06/24 06:23 amlodipine AdvReac Mild Swelling Verified 12/06/24 06:23 amoxicillin (From Augmentin) AdvReac Mild Diarrhea Verified 12/06/24 06:23 ciprofloxacin (From Cipro) AdvReac Mild Unknown Verified 12/06/24 06:23 clavulanic acid (From AdvReac Mild Diarrhea Verified 12/06/24 06:23 Augmentin) hydrochlorothiazide AdvReac Mild Unknown Verified 12/06/24 06:23 ibandronate sodium (From AdvReac Mild Muscle Verified 12/06/24 06:23 Boniva) Spasms montelukast (From Singulair) AdvReac Mild Unknown Verified 12/06/24 06:23 nitrofurantoin (From AdvReac Mild Unknown Verified 12/06/24 06:23 Macrobid) Vital Signs Vital Signs - 24 hr 12/06/24 06:24 Temperature 97.6 F Pulse Rate 66 Respiratory Rate 16 Blood Pressure 174/96 H Pulse Oximetry 99 Oxygen Delivery Room Air Exam Const: General: comfortable and no acute distress HENMT: Face/Nose/Sinus: Normal nares present Eyes: General: appearance normal, both eyes and all related structures Neck: Neck: no JVD Resp: Auscultation: clear to auscultation bilaterally Cardio: Rate: regular rate Rhythm: regular rhythm GI: Inspection: non-distended GI Palp: Yes Soft to palpation Skin: General skin exam: normal color Neuro: Speech: normal speech Extrem: General: normal to inspection Psych: Mental Status: mental status grossly normal Assessment and Plan Assessment and plan (1) Dyspepsia: Code(s): R10.13 - Epigastric pain Status: Acute (2) Dysphagia: Code(s): R13.10 - Dysphagia, unspecified Status: Acute Assessment and Plan: egd
[2024-12-06 07:46] VITALS: BP 163/81; PULSE 71; RESP 18; O2SAT 100
[2024-12-06 07:56] VITALS: BP 146/74; PULSE 64; RESP 16; O2SAT 100
[2024-12-06 08:06] VITALS: BP 156/74; PULSE 62; RESP 20; O2SAT 100
== END 2024-12-06 08:19 | disposition home or self-care (01) ==
PROVIDERS: PCP Physician Assistant Medical; Referring Provider Physician Assistant Medical; Visit Provider Internal Medicine Gastroenterology
PROC: 0DJ08ZZ Inspection of Upper Intestinal Tract, Via Natural or Artificial Opening Endoscopic (ICD-10-PCS; CPT 43239; principal; 2024-12-06 07:30)
DX: K31.89 Other diseases of stomach and duodenum (principal); K29.70 Gastritis, unspecified, without bleeding; I10 Essential (primary) hypertension; E03.9 Hypothyroidism, unspecified; F41.9 Anxiety disorder, unspecified; R32 Unspecified urinary incontinence; M85.88 Other specified disorders of bone density and structure, other site; Z79.51 Long term (current) use of inhaled steroids; Z79.890 Hormone replacement therapy; Z98.890 Other specified postprocedural states; Z87.891 Personal history of nicotine dependence; Z86.79 Personal history of other diseases of the circulatory system; Z87.2 Personal history of diseases of the skin and subcutaneous tissue; Z80.0 Family history of malignant neoplasm of digestive organs; Z82.49 Family history of ischemic heart disease and other diseases of the circulatory system
CPT/HCPCS: 43239; 43450; 88305; J2704; J7120